=== PATIENT | male | born 2000 | race Caucasian/White ===

== ENCOUNTER 2021-07-02 10:37 | Emergency (ER) | payer OTHER ==
[2021-07-02 10:55] VITALS: BP 126/84
--- NOTE | 2021-07-02 11:43 | ED Physician Documentation ---
History of Present Illness - Stated complaint Stated Complaint: FACE INJ - Chief complaint Chief Complaint: Laceration - Additonal information Additional information: 20-year-old male presents emergency department for evaluation of a vertical laceration sustained when a wrench she was using at work became loose and struck him in the forehead. No loss consciousness. No blood thinners. No vomiting. Mild headache. Tetanus is up-to-date. Review of Systems Constitutional: denies: Fever, Chills Throat: reports: Reviewed and negative Cardiac: reports: Reviewed and negative Respiratory: reports: Reviewed and negative GI: reports: Reviewed and negative : reports: Reviewed and negative Skin: reports: Laceration (s) Musculoskeletal: reports: Reviewed and negative Neurologic: reports: Headache, Head injury. denies: Generalized weakness, Numbness, Syncope, Altered mental status, Unresponsive, LOC PD PAST MEDICAL HISTORY - Past Medical History Past Medical History: No - Past Surgical History Past Surgical History: No - Social History Does the pt smoke?: No Smoking Status: Never smoker Does the pt drink ETOH?: No Does the pt have substance abuse?: No - Immunizations Immunizations are current?: Yes - POLST Patient has POLST: No PD ED PE NORMAL - General General: Alert and oriented X 3, No acute distress - HEENT HEENT: PERRL, EOMI, Ears normal, Other (Negative for raccoon eyes and walton sign. No hemotympanum. 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, No motor deficit Eye Opening: Spontaneous Motor: Obeys Commands Verbal: Oriented GCS Score: 15 Results - Vitals Vitals: Vital Signs - 24 hr 07/02/21 10:48 Temperature 36.6 C Heart Rate 80 Respiratory 16 Rate Blood Pressure 126/84 H O2 Saturation 99 Oxygen O2 Source Room air PD MEDICAL DECISION MAKING - ED course Complexity details: reviewed results, re-evaluated patient, considered differential, d/w patient ED course: 20-year-old male who has up-to-date tetanus presents emergency department with a 2 cm vertical laceration just above his left eyebrow sustained while on the job with the [employer]. Wound was rather superficial in nature and closed with Steri- Strips and glue. Routine wound care and emergent return precautions otherwise discussed. Departure - Departure Disposition: 01 Home, Self Care Clinical Impression: Forehead laceration Qualifiers: Encounter type: initial encounter Qualified Code(s): S01.81XA - Laceration without foreign body of other part of head, initial encounter Condition: Stable Record reviewed to determine appropriate education?: Yes Instructions: ED Laceration Facial Skin Glue Comments: The laceration on your forehead was closed with glue and Steri-Strips. This will wear away over the next 5 to 7 days. In general there is no specific wound care needed. Do not apply any antibiotic ointment as it will cause the glue to wear away quicker. the steristrips will naturally fall away in about 5 days. If at any point you have concerns of infection, fevers, redness milky drainage increased pain then please return immediately to the ER.
== END 2021-07-02 11:51 | disposition home or self-care (01) ==
LOC: ED 10:37
DX: S01.81XA Laceration without foreign body of other part of head, initial encounter (principal); W22.8XXA Striking against or struck by other objects, initial encounter; Y93.89 Activity, other specified; Y99.0 Civilian activity done for income or pay
CPT/HCPCS: 12011; 99281